=== PATIENT | female | born 1965 | race Caucasian/White ===

== ENCOUNTER 2017-04-14 20:04 | Inpatient (IN) | payer OTHER ==
[~2017-04-14] VITALS: Ht 162.6 cm; Wt 68.0 kg
[2017-04-14 20:04] VITALS: BP_SYST 122
[2017-04-14 20:45] LABS: BASOPHILS # (AUTO) 0.1 K/uL (0.0-0.2); BASOPHILS % (AUTO) 1.1 % (0.0-2.0); EOSINOPHILS # (AUTO) 0.2 K/uL (0.0-0.4); EOSINOPHILS % (AUTO) 2.4 % (0.0-4.0); HEMATOCRIT 43.1 % (36-48); HEMOGLOBIN 14.3 g/dL (12.0-16.0); LYMPHOCYTES # (AUTO) 2.2 K/uL (1.0-5.5); LYMPHOCYTES % (AUTO) 34.3 % (20.5-51.5); MEAN CORPUSCULAR HEMOGLOBIN 30 pg (27-31); MEAN CORPUSCULAR HGB CONC 33 % (32-36); MEAN CORPUSCULAR VOLUME 91 fL (79.0-98.0); MONOCYTES # (AUTO) 0.4 K/uL (0.0-1.0); MONOCYTES % (AUTO) 5.8 % (1.7-9.3); NEUTROPHILS # (AUTO) 3.7 K/uL (1.8-7.7); NEUTROPHILS % (AUTO) 56.4 % (40.0-70.0); PLATELET COUNT (AUTO) 278 K/uL (130-430); RED BLOOD CELL COUNT(AUTO) 4.73 MIL/uL (4.2-6.2); RED CELL DISTRIBUTION WIDTH 11.9 % (9.0-15.0); WHITE BLOOD COUNT (AUTO) 6.6 K/uL (4.8-10.8)
[2017-04-14 20:49] LABS: CALCIUM 8.7 mg/dL (8.4-11.0); CREATININE 0.69 mg/dL (0.55-1.30); POTASSIUM 3.6 mmol/L (3.5-5.1)
[2017-04-14 20:51] LABS: PROTHROMBIN TIME 10.4 SECS (9.5-12.5)
[2017-04-14] MEDS ORDERED: QUET50TA13 PO (21:25)
[2017-04-14] MEDS ORDERED: NS 500 ML IV ONE (21:30)
[2017-04-14 22:46] VITALS: BP_SYST 121
[2017-04-14 23:14] VITALS: BP_SYST 121
[2017-04-14] MEDS ORDERED: ATROPINE SULFATE 0.4 MG/ML VIAL IVP PRN (23:30)
[2017-04-14 23:39] VITALS: BP_SYST 121
[2017-04-14 23:40] VITALS: BP_SYST 146
[2017-04-14 23:41] VITALS: BP_SYST 140
[2017-04-15] VITALS (8 sets, daily range): BP systolic 98–114
[2017-04-15] MEDS: QUEtiapine FUMARATE 25 MG TABLET PO PRN (01:39)
[2017-04-15 06:55] LABS: BASOPHILS % (AUTO) 0.8 % (0.0-2.0); EOSINOPHILS # (AUTO) 0.2 K/uL (0.0-0.4); EOSINOPHILS % (AUTO) 2.9 % (0.0-4.0); HEMATOCRIT 36.9 % (36-48); HEMOGLOBIN 12.7 g/dL (12.0-16.0); LYMPHOCYTES # (AUTO) 2.7 K/uL (1.0-5.5); LYMPHOCYTES % (AUTO) 46.1 % (20.5-51.5); MEAN CORPUSCULAR HEMOGLOBIN 31 pg (27-31); MEAN CORPUSCULAR HGB CONC 34 % (32-36); MEAN CORPUSCULAR VOLUME 92 fL (79.0-98.0); MONOCYTES # (AUTO) 0.4 K/uL (0.0-1.0); MONOCYTES % (AUTO) 7.4 % (1.7-9.3); NEUTROPHILS # (AUTO) 2.5 K/uL (1.8-7.7); NEUTROPHILS % (AUTO) 42.8 % (40.0-70.0); PLATELET COUNT (AUTO) 225 K/uL (130-430); RED BLOOD CELL COUNT(AUTO) 4.03 MIL/uL (4.2-6.2); RED CELL DISTRIBUTION WIDTH 11.9 % (9.0-15.0); WHITE BLOOD COUNT (AUTO) 5.8 K/uL (4.8-10.8)
[2017-04-15 07:16] LABS: FREE T4 (FREE THYROXINE) 0.7 ng/dL (0.6-1.6); THYROID STIMULATING HORMONE 1.77 uIu/mL (0.34-4.82)
[2017-04-15] MEDS ORDERED: THEOPHYLLINE ANHYDROUS 300 MG TAB.SR.12H PO ONE (09:30)
[2017-04-15 12:16] LABS: ALBUMIN 3.2 g/dL (3.4-4.8); BILIRUBIN,DIRECT 0.2 mg/dL (0.0-0.3); TOTAL PROTEIN, SERUM 6.2 g/dL (6.4-8.3)
[2017-04-16] MEDS: QUEtiapine FUMARATE 25 MG TABLET PO PRN (00:30)
[2017-04-16 00:51] VITALS: BP_SYST 122
[2017-04-16 04:00] VITALS: BP_SYST 110
[2017-04-16 08:00] VITALS: BP_SYST 115
[2017-04-16] MEDS: THEOPHYLLINE ANHYDROUS 300 MG TAB.SR.12H PO SCH (09:42)
[2017-04-16 11:48] VITALS: BP_SYST 103
[2017-04-16] MEDS: ACETAMINOPHEN 325 MG TABLET PO PRN (13:37)
[2017-04-16 16:50] VITALS: BP_SYST 116
[2017-04-16 19:30] VITALS: BP_SYST 122
[2017-04-17] VITALS (7 sets, daily range): BP systolic 111–122
[2017-04-17] MEDS: QUEtiapine FUMARATE 25 MG TABLET PO PRN (01:07)
[2017-04-17] MEDS: THEOPHYLLINE ANHYDROUS 300 MG TAB.SR.12H PO SCH (10:00)
[2017-04-17] MEDS ORDERED: LR 1,000 ML IV SCH (17:51)
[2017-04-17] MEDS ORDERED: ONDANSETRON HCL 4 MG/2 ML VIAL IVP PRN (18:00)
[2017-04-17] MEDS ORDERED: HYDROmorphone 2 MG/ML VIAL IVP PRN ×2 (18:00)
[2017-04-17] MEDS ORDERED: KETOROLAC TROMETHAMINE 30 MG VIAL IVP PRN (18:00)
[2017-04-17] MEDS ORDERED: MEPERIDINE HCL/PF 25 MG/ML DISP.SYRIN IVP PRN ×2 (18:00)
[2017-04-17] MEDS ORDERED: HYDROmorphone 1 MG INJ. 1 MG/ML AMPUL IVP PRN (18:00)
[2017-04-18] MEDS: QUEtiapine FUMARATE 25 MG TABLET PO PRN (00:43)
[2017-04-18 00:45] VITALS: BP_SYST 118
[2017-04-18] MEDS: ACETAMINOPHEN 325 MG TABLET PO PRN (00:45)
[2017-04-18 04:15] VITALS: BP_SYST 118
[2017-04-18 07:13] LABS: BASOPHILS # (AUTO) 0.1 K/uL (0.0-0.2); BASOPHILS % (AUTO) 0.8 % (0.0-2.0); EOSINOPHILS # (AUTO) 0.2 K/uL (0.0-0.4); EOSINOPHILS % (AUTO) 2.1 % (0.0-4.0); HEMATOCRIT 37.6 % (36-48); HEMOGLOBIN 13.1 g/dL (12.0-16.0); LYMPHOCYTES # (AUTO) 2.5 K/uL (1.0-5.5); LYMPHOCYTES % (AUTO) 33.1 % (20.5-51.5); MEAN CORPUSCULAR HEMOGLOBIN 32 pg (27-31); MEAN CORPUSCULAR HGB CONC 35 % (32-36); MEAN CORPUSCULAR VOLUME 91 fL (79.0-98.0); MONOCYTES # (AUTO) 0.5 K/uL (0.0-1.0); MONOCYTES % (AUTO) 6.9 % (1.7-9.3); NEUTROPHILS # (AUTO) 4.2 K/uL (1.8-7.7); NEUTROPHILS % (AUTO) 57.1 % (40.0-70.0); PLATELET COUNT (AUTO) 237 K/uL (130-430); RED BLOOD CELL COUNT(AUTO) 4.13 MIL/uL (4.2-6.2); RED CELL DISTRIBUTION WIDTH 12.1 % (9.0-15.0); WHITE BLOOD COUNT (AUTO) 7.5 K/uL (4.8-10.8)
[2017-04-18] MEDS ORDERED: traMADol HCL HCL 50 MG TABLET (ULTRAM) PO PRN (07:45)
[2017-04-18 08:00] VITALS: BP_SYST 103
[2017-04-18] MEDS: THEOPHYLLINE ANHYDROUS 300 MG TAB.SR.12H PO SCH (08:16)
[2017-04-18 11:59] VITALS: BP_SYST 133
[2017-04-18 12:46] VITALS: BP_SYST 113
[2017-04-18 18:08] LABS: ALBUMIN 3.4 g/dL (3.4-4.8); CALCIUM 8.2 mg/dL (8.4-11.0); CREATININE 0.49 mg/dL (0.55-1.30); POTASSIUM 4.1 mmol/L (3.5-5.1); TOTAL BILIRUBIN 0.7 mg/dL (0.0-1.0); TOTAL PROTEIN, SERUM 6.1 g/dL (6.4-8.3)
== END 2017-04-18 12:30 | disposition home or self-care (01) | DRG 244 ==
LOC: SED 20:04 → STU 22:29
PROVIDERS: ADMIT Internal Medicine; ATTEND Internal Medicine
PROC: 02H63JZ Insertion of Pacemaker Lead into Right Atrium, Percutaneous Approach (ICD-10-PCS; 2017-04-17)
PROC: 02HK3JZ Insertion of Pacemaker Lead into Right Ventricle, Percutaneous Approach (ICD-10-PCS; 2017-04-17)
PROC: 0JH606Z Insertion of Pacemaker, Dual Chamber into Chest Subcutaneous Tissue and Fascia, Open Approach (ICD-10-PCS; principal; 2017-04-17 17:15)
DX: I49.5 Sick sinus syndrome (principal); Z82.49 Family history of ischemic heart disease and other diseases of the circulatory system; Z87.891 Personal history of nicotine dependence; Z83.79 Family history of other diseases of the digestive system; Z83.0 Family history of human immunodeficiency virus [HIV] disease
CPT/HCPCS: 36415; 71010; 76000; 80048; 80053; 80061; 80076; 83735-TC; 83880; 84439; 84443-TC; 84484; 84703; 85025; 85610-TC; 85730-TC; 87081; 93005; 93306; 96360; 99285; J7030

== ENCOUNTER 2017-04-24 08:52 | Inpatient (IN) | payer OTHER ==
[~2017-04-24] VITALS: Ht 162.6 cm; Wt 68.0 kg
[~2017-04-24 08:52] MED LIST: QUET50TA13 PO
[2017-04-24 08:58] VITALS: BP_SYST 113
[2017-04-24] MEDS ORDERED: D5NS 1,000 ML IV SCH (09:45)
[2017-04-24 10:15] LABS: BASOPHILS # (AUTO) 0.1 K/uL (0.0-0.2); BASOPHILS % (AUTO) 1.1 % (0.0-2.0); EOSINOPHILS # (AUTO) 0.2 K/uL (0.0-0.4); EOSINOPHILS % (AUTO) 4.1 % (0.0-4.0); HEMATOCRIT 39.1 % (36-48); HEMOGLOBIN 13.3 g/dL (12.0-16.0); LYMPHOCYTES # (AUTO) 1.8 K/uL (1.0-5.5); LYMPHOCYTES % (AUTO) 37.8 % (20.5-51.5); MEAN CORPUSCULAR HEMOGLOBIN 31 pg (27-31); MEAN CORPUSCULAR HGB CONC 34 % (32-36); MEAN CORPUSCULAR VOLUME 92 fL (79.0-98.0); MONOCYTES # (AUTO) 0.4 K/uL (0.0-1.0); MONOCYTES % (AUTO) 8.2 % (1.7-9.3); NEUTROPHILS # (AUTO) 2.4 K/uL (1.8-7.7); NEUTROPHILS % (AUTO) 48.8 % (40.0-70.0); PLATELET COUNT (AUTO) 221 K/uL (130-430); RED BLOOD CELL COUNT(AUTO) 4.25 MIL/uL (4.2-6.2); RED CELL DISTRIBUTION WIDTH 11.7 % (9.0-15.0); WHITE BLOOD COUNT (AUTO) 4.9 K/uL (4.8-10.8)
[2017-04-24 10:37] LABS: PROTHROMBIN TIME 10.7 SECS (9.5-12.5)
[2017-04-24 10:59] VITALS: BP_SYST 112
[2017-04-24] MEDS ORDERED: CEPH-568 PO (11:02)
[2017-04-24 11:03] LABS: ANION GAP 5 (5-15); CALCIUM 8.7 mg/dL (8.4-11.0); CHLORIDE 110 mmol/L (98-107); CREATININE 0.64 mg/dL (0.55-1.30); GLUCOSE 93 mg/dL (70-99); SODIUM SERUM 144 mmol/L (136-145); UREA NITROGEN, BLOOD 12 mg/dL (8-21)
[2017-04-24 11:08] LABS: ALANINE AMINOTRANSFERASE 36 U/L (12-78); ALBUMIN 3.3 g/dL (3.4-4.8); ASPARTATE AMINOTRANSFERASE 27 U/L (10-37); TOTAL BILIRUBIN 0.6 mg/dL (0.0-1.0); TOTAL PROTEIN, SERUM 6.6 g/dL (6.4-8.3)
[2017-04-24 12:05] LABS: BILIRUBIN,URINE NEGATIVE (NEGATIVE); CLARITY/URINE CLEAR (CLEAR); COLOR,URINE YELLOW (YELLOW); GLUCOSE,URINE NEGATIVE (NEGATIVE); KETONES,URINE NEGATIVE (NEGATIVE); LEUKOCYTE ESTERASE ,URINE NEGATIVE (NEGATIVE); NITRITE, URINE NEGATIVE (NEGATIVE); PROTEIN URINE NEGATIVE (NEGATIVE); UROBILINOGEN,URINE 0.2 (0.2-1.0)
[2017-04-24 12:07] LABS: HCG,QUAL RESULT NEGATIVE (NEGATIVE)
[2017-04-24 12:08] LABS: BLOOD, URINE TRACE (NEGATIVE)
[2017-04-24 12:29] LABS: BACTERIA,URINE FEW /HPF (None Seen); RBC,URINE 0-3 /HPF (0-3); WBC,URINE 0-3 /HPF (0-3)
[2017-04-24 12:30] LABS: MUCUS,URINE 1+ /LPF (None Seen)
[2017-04-24 13:22] VITALS: BP_SYST 112
[2017-04-24] MEDS ORDERED: KETAMINE HCL 500 MG/10 ML VIAL ONE (13:59)
[2017-04-24] MEDS ORDERED: LR 1,000 ML IV ONE (14:28)
[2017-04-24] MEDS ORDERED: ONDANSETRON HCL 4 MG/2 ML VIAL IVP PRN ×2 (14:30)
[2017-04-24] MEDS ORDERED: NALBUPHINE HCL 10 MG/ML AMP IVP PRN (14:30)
[2017-04-24] MEDS ORDERED: fentaNYL CITRATE/PF 100 MCG/2 ML AMP IVP PRN (14:30)
[2017-04-24] MEDS ORDERED: DIPHENHYDRAMINE INJ 50 MG/ML VIAL IVP PRN (14:30)
[2017-04-24] MEDS ORDERED: ePHEDrine sulfate 50 MG/ML VIAL IVP PRN (14:30)
[2017-04-24] MEDS ORDERED: NALOXONE HCL 0.4 MG/ML AMP (NARCAN) IVP PRN (14:30)
[2017-04-24] MEDS ORDERED: KETOROLAC TROMETHAMINE 30 MG VIAL IM PRN (14:30)
[2017-04-24] MEDS ORDERED: HYDROcodone/ACETAMIN 5-325 MG TAB (NORCO/ VICODIN) PO PRN (14:45)
[2017-04-24 17:00] VITALS: BP_SYST 116
[2017-04-24 19:12] VITALS: BP_SYST 110
[2017-04-24] MEDS ORDERED: CEPHALEXIN 500 MG CAPSULE PO ONE (21:00)
[2017-04-24] MEDS ORDERED: QUEtiapine FUMARATE 25 MG TABLET PO PRN (21:00)
[2017-04-24] MEDS: CEPHALEXIN 500 MG CAPSULE PO SCH (21:13)
[2017-04-25 00:01] VITALS: BP_SYST 114
[2017-04-25] MEDS: CEPHALEXIN 500 MG CAPSULE PO SCH ×3 (04:29→12:19)
[2017-04-25 04:30] VITALS: BP_SYST 97
[2017-04-25 07:21] LABS: BASOPHILS % (AUTO) 0.7 % (0.0-2.0); EOSINOPHILS # (AUTO) 0.2 K/uL (0.0-0.4); EOSINOPHILS % (AUTO) 3.2 % (0.0-4.0); HEMOGLOBIN 12.2 g/dL (12.0-16.0); LYMPHOCYTES # (AUTO) 2.4 K/uL (1.0-5.5); LYMPHOCYTES % (AUTO) 37.6 % (20.5-51.5); MEAN CORPUSCULAR HEMOGLOBIN 31 pg (27-31); MEAN CORPUSCULAR HGB CONC 34 % (32-36); MEAN CORPUSCULAR VOLUME 92 fL (79.0-98.0); MONOCYTES # (AUTO) 0.4 K/uL (0.0-1.0); MONOCYTES % (AUTO) 6.8 % (1.7-9.3); NEUTROPHILS # (AUTO) 3.3 K/uL (1.8-7.7); NEUTROPHILS % (AUTO) 51.7 % (40.0-70.0); PLATELET COUNT (AUTO) 203 K/uL (130-430); RED BLOOD CELL COUNT(AUTO) 3.92 MIL/uL (4.2-6.2)
[2017-04-25 07:26] LABS: WHITE BLOOD COUNT (AUTO) 6.3 K/uL (4.8-10.8)
[2017-04-25 08:44] VITALS: BP_SYST 109
[2017-04-25 12:57] VITALS: BP_SYST 113
[2017-04-25 13:00] VITALS: BP_SYST 113
== END 2017-04-25 14:00 | disposition home or self-care (01) | DRG 262 ==
LOC: SED 08:52 → STU 09:33
PROVIDERS: ADMIT Specialist; ATTEND Specialist
PROC: 02WA3MZ Revision of Cardiac Lead in Heart, Percutaneous Approach (ICD-10-PCS; principal; 2017-04-24)
DX: T82.120A Displacement of cardiac electrode, initial encounter (principal); Y83.1 Surgical operation with implant of artificial internal device as the cause of abnormal reaction of the patient, or of later complication, without mention of misadventure at the time of the procedure; F32.9 Major depressive disorder, single episode, unspecified; I49.5 Sick sinus syndrome; Y92.89 Other specified places as the place of occurrence of the external cause; Y93.89 Activity, other specified; Y99.8 Other external cause status; Z88.1 Allergy status to other antibiotic agents
CPT/HCPCS: 36415; 71010; 76000; 80053; 81000-TC; 83880; 84484; 84703; 85025; 85610-TC; 85730-TC; 87081; 93005; 99285; J7042; J7120